=== PATIENT | female | born 1940 | race Caucasian/White ===

== ENCOUNTER → 2016-12-06 | Day surgery (SDC) | payer MEDICARE, OTHER ==
[~2016-12-06] MED LIST: ACET325T9 PO; ALBUTEROL SULFATE 2.5 MG/3 ML NEBU. NEB ONE; ALPR0.5T PO; AMLO5TAB2 PO; ASPI325T11 PO; ATOR20TA58 PO; BRIM5DRO2 EACHEYE; CHOL100013 PO; CLON0.5T3 PO; CRAN450C PO; DOCU-27 PO; DULO60CA6 PO; FENT1PAT19 TD; FENT1PAT21 TD; FENTANYL PF 100 MCG/2 ML VIAL. IV PRN; FURO-68 PO; GUAI100L32 PO; INSU100I17 SQ; IV RINGERS,LACTATED 1000ML 1,000 ML IV SCH; LATA2.5D2 EACHEYE; LEVO150T5 PO; LIDOCAINE 1% 1 ML SYRINGE. ID PRN; LISI2.5T PO; MAGN400C PO; MAGN400O4 PO; MELO15TA6 PO; METF10002 PO; MULT-245 PO; NITR0.4T6 SL; OMEG300C PO; OMEP20CA9 PO; ONDANSETRON PF 4 MG/2 ML VIAL. IV PRN; OXYC10TA PO; OXYC1TAB9 PO; POLY17PO5 PO; POTA20TA82 PO; PROCHLORPERAZINE 10 MG/2 ML VIAL. IV PRN; PROP10DR4 EACHEYE; PROPOFOL 20 ML IV ONE; RALO60TA PO; RANI150T2 PO; SENN8.6T3 PO; SULF1TAB24 PO; TRAZ150T55 PO
--- NOTE | 2016-12-06 11:57 | PDOC1 ---
HISTORY & PHYSICAL H&P Patient: Tonie Bear History of Present Illness: Patient was seen in the out patient due to complain of dysphagia. Patient had history of esophageal perforation and diverticulum formation for a while and had periodic episode of dysphagia. No wt loss. No hematemesis. Rest of the history has not been changed. Patient is here again today due to difficulty evaluating during last EGD due to presence of large amount of food in the esophageal diverticulum. Past Medical/Surgical History: Condition Year Procedure/Surgery Year J-tube placement EGD with dilation 2013 Paraesophageal hernia resection Depressive Disorder DM Esophageal perforation Esophageal Reflux Hx. DVT Hx. MRSA Hx. Pneumonia Hypertension Hypopotassemia Hypothyroidism Insomnia Osteoarthritis Panic disorder Reviewed, no changes. Allergen/Ingredient Brand Reaction MORPHINE rash TOBACCO: Smoking status: Never smoker. There is no history of alcohol use. CAFFEINE: The patient uses caffeine: soda - 1 cup a day. Vital Signs as per out patient record. Physical Exam System Findings Details Constitutional Neg Overall appearance - Normal. Eyes Neg Conjunctiva - Right: Normal, Left: Normal. Sclera - Right: Normal, Left: Normal. Nasopharynx Neg Lips/teeth/gums - Normal. Buccal mucosa - Normal. Neck Exam Neg Inspection - Normal. Palpation - Normal. Thyroid gland - Normal. Respiratory Neg Inspection - Normal. Auscultation - Normal. Cardiovascular Neg Regular rate and rhythm. No murmurs, gallops, or rubs. Abdomen Neg Inspection - Normal. Appliance(s) - Normal. Abdominal muscles - Normal. Auscultation - Normal. Percussion - Normal. Anterior palpation - Normal. Umbilicus - Normal. Abdominal reflxes - Normal. Skin Neg Inspection - Normal. Musculoskeletal Neg Hands/Wrist - Right: Normal, Left: Normal. Neurological Neg Fine motor skills - Normal. Assessment Plan Dysphagia. h/o esophageal perforation. Plan: To repeat EGD and possible esophageal dilation. Asif Rivers. ASIF RIVERS MD Dec 06, 2016 11:57
--- NOTE | 2016-12-06 12:06 | PDOC4 ---
GI OP Report - Dr. 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 - Benign-appearing esophageal stenosis. Dilated. - Normal stomach. - Normal examined duodenum. - No specimens collected. Plan - Discharge patient to a care home. - Patient has a contact number available for emergencies. The signs and symptoms of potential delayed complications were discussed with the patient. Return to normal activities tomorrow. Written discharge instructions were provided to the patient. - Soft diet. - Continue present medications. - Return to my office in 4 weeks. ASIF RIVERS MD Dec 06, 2016 12:06
[2016-12-06 12:16] VITALS: BP 175/86
== END | disposition home or self-care (01) ==
LOC: SURG 10:37
PROVIDERS: ATTEND Internal Medicine Gastroenterology
DX: K22.2 Esophageal obstruction (principal); H40.9 Unspecified glaucoma; I20.9 Angina pectoris, unspecified; I25.10 Atherosclerotic heart disease of native coronary artery without angina pectoris; I73.9 Peripheral vascular disease, unspecified; E78.00 Pure hypercholesterolemia, unspecified; I10 Essential (primary) hypertension; E66.9 Obesity, unspecified; K21.9 Gastro-esophageal reflux disease without esophagitis; Z90.710 Acquired absence of both cervix and uterus; Z90.721 Acquired absence of ovaries, unilateral; N39.0 Urinary tract infection, site not specified; M19.90 Unspecified osteoarthritis, unspecified site; M81.0 Age-related osteoporosis without current pathological fracture; E11.9 Type 2 diabetes mellitus without complications; E03.9 Hypothyroidism, unspecified; F41.9 Anxiety disorder, unspecified; F32.9 Major depressive disorder, single episode, unspecified; F41.0 Panic disorder [episodic paroxysmal anxiety]
CPT/HCPCS: 43249; J2704

== ENCOUNTER → 2017-03-02 | Outpatient (CLI) | payer MEDICARE, OTHER ==
[2016-12-06 12:16] VITALS: BP 175/86
[~2017-03-02] MED LIST changes: -ALBUTEROL SULFATE 2.5 MG/3 ML NEBU. NEB ONE; -FENTANYL PF 100 MCG/2 ML VIAL. IV PRN; -IV RINGERS,LACTATED 1000ML 1,000 ML IV SCH; -LIDOCAINE 1% 1 ML SYRINGE. ID PRN; -ONDANSETRON PF 4 MG/2 ML VIAL. IV PRN; -PROCHLORPERAZINE 10 MG/2 ML VIAL. IV PRN; -PROPOFOL 20 ML IV ONE
--- NOTE | 2017-03-02 13:07 | RAD ---
Renal ultrasound, 03/02/2017: History: Frequent UTIs The right kidney measures 8.5 cm in length. The left kidney measures 8.8 cm. There is no evidence of hydronephrosis or a renal mass. The renal parenchymal echogenicity is within normal limits. Limited views of urinary bladder show no abnormality. IMPRESSION: The kidneys are at the lower limits of normal in size, but otherwise unremarkable.
== END | disposition home or self-care (01) ==
LOC: US 12:08
PROVIDERS: ATTEND Urology
DX: N39.0 Urinary tract infection, site not specified (principal)
CPT/HCPCS: 76770